=== PATIENT | female | born 1960 | race Caucasian/White ===

== ENCOUNTER 2018-04-24 11:13 | Observation (INO) ==
--- NOTE | 2018-04-24 15:14 | MB ---
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 She does not take an aspirin or any blood thinners. She was last seen at midnight when she went to bed, doing fine. When she woke up this morning she felt like she could not see well out of the right eye and some left-sided weakness at 8 a.m. SOCIAL HISTORY: She is not a smoker or drinker, lives alone. FAMILY HISTORY: She is adopted. REVIEW OF SYSTEMS: According to the daughter, no hypertension, diabetes, hypercholesterolemia, DE, stent, angioplasty, atrial fibrillation, Coumadin, renal, hepatic or pulmonary disease, lupus, ulcer, cancer, definite seizure, prior stroke. ALLERGIES: SHE IS ALLERGIC TO SULFA, AZITHROMYCIN, CIPRO, AND PENICILLIN. MEDICATIONS: In July, she was on thyroid medicine, Claritin, Symbicort, inhalers, Mobic, Protonix and vitamins. PHYSICAL EXAMINATION: On exam this morning, her daughter noted blood pressure 175/108. RECOMMENDATIONS: The labs, CAT scan preliminary negative of the brain, CTAs are pending. ADDENDUM On exam, sinus rhythm, 150/70, now 80. Visual gutierrez appeared full bilaterally, on the TeleStroke exam via the ER doctor. Extraocular movements intact. Face is symmetric with some slight decreased sensation on the left compared to the right. Tongue was midline. Speech is fluent. She is not aphasic, gives a good history. There is a slight left drift. She had normal strength in right upper and lower extremity. The left upper triceps to about 4+/5 as per finger extensors. Left iliopsoas is about 4/5. Pinprick seemed to be diminished left face, arm, and leg. NIH stroke scale 4. IMPRESSION: Possibly a small stroke. She tells me that she passed out this morning. She had woken up, felt dizzy, some vertigo, went to stand up passed out on the floor, woke up, had urinary incontinence and her tongue feels a little sore, whether she could have had a seizure or just from hypoglycemia is a possibility. She tells me she has had several of these episodes in the last 5 years, where her sugar was down to 23. In fact, she wears a sugar monitor for just such symptoms. If CT of the head and [place] are negative, we will transfer over to [place]. I gave her 325 aspirin. Do an MRI of the brain, and I will be following her with you in the hospital. An EEG will be performed and some other blood work. Following a look at her labs here, her CPK and troponin are negative. Sugar was 80 in the ER today. MD NAWAF Seay/caryn , 12:22 PM , 12:28 PM MTDKip
[2018-04-24] MEDS ORDERED: Acetaminophen 325 MG Tablet PO PRN ×2 (16:01→17:56)
--- NOTE | 2018-04-24 16:19 | P.HPIM ---
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 Patient reports that she wake up this AM did not feel like herself, tried to stand up and passed out. Patient denies head trauma. Patient was unconscious for an unknown amount of time. Then when patient came to around 9:30 AM she could not see out of her right eye. Her cloths were wet, she is not sure if the clothes were wet from sweat or urine. At first patient though that her blood sugar was low so she ate several glucose tablets. Patient reports that her glucose has been as low as in the 30s 3-4 times this week, mostly in the AM. Patient attributes these low blood sugar readings to her increased activates. Patient also reports upper and lower extremity weakness along with numbness to the left side of her face and tongue. Patient also reports that when she looked in the mirror her face did not seem symmetrical. Patient had a headache and reports her blood pressure was elevated, "178/something." She does not take an aspirin or any blood thinners. She was last seen at midnight when she went to bed, doing fine. At this time patient reports that the vision in her right eye and left sided weakness is improving. 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 Medications and Allergies Allergies Allergy/AdvReac Type Severity Reaction Status Date / Time azithromycin Allergy Severe Hives Verified 04/24/18 11:37 ciprofloxacin Allergy Severe Hives Verified 04/24/18 11:37 penicillin G Allergy Severe Anaphylaxis Verified 04/24/18 11:37 Sulfa (Sulfonamide Allergy Severe Hives Verified 04/24/18 11:37 Antibiotics) corn Allergy Wheezing Verified 04/24/18 11:37 peanut [peanuts] Allergy Anaphylaxis Verified 04/24/18 11:37 Home Medications Medication Instructions Recorded Confirmed Type albuterol sulfate 1.25 mg INHALATION Q4H PRN 04/24/18 04/24/18 History budesonide-formoterol [Symbicort] 2 puff INHALATION BID 04/24/18 04/24/18 History folic acid 04/24/18 History gabapentin 300 mg PO HS 04/24/18 04/24/18 History hydrochlorothiazide 25 mg PO DAILY 04/24/18 04/24/18 History levothyroxine [Synthroid] 100 mcg PO DAILY 04/24/18 04/24/18 History loratadine [Claritin] 10 mg PO DAILY 04/24/18 04/24/18 History lorazepam 0.5 mg PO TID PRN 04/24/18 04/24/18 History meloxicam 15 mg PO DAILY 04/24/18 04/24/18 History metformin 500 mg PO BID 04/24/18 04/24/18 History multivit with min-folic acid 04/24/18 History [Adult One Daily Multivitamin] ondansetron HCl [Zofran] 8 mg PO TID PRN 04/24/18 04/24/18 History pantoprazole [Protonix] 40 mg PO DAILY 04/24/18 04/24/18 History tizanidine [Zanaflex] 4 mg PO BID PRN 04/24/18 04/24/18 History tramadol 50 mg PO BID PRN 04/24/18 04/24/18 History Active Medications: Active Medications Acetaminophen (Tylenol) 650 mg PO Q4H PRN PRN Reason: Temp > 100.4 Al Hydroxide/Mg Hydroxide (Milk Of Ashley Liq) 30 ml PO Q12H PRN PRN Reason: Mild Constipation Sodium Chloride (Ns Inj) 1,000 mls @ 70 mls/hr IV.CONT .[id number] [facility] Ondansetron HCl (Zofran Inj) 4 mg IV.PUSH Q6H PRN PRN Reason: NAUSEA OR VOMITING Senna/Docusate Sodium (Ivette-Colace) [address] [facility] Physical Exam Narrative: GENERAL: This is a well-nourished, well-developed patient, in no apparent distress. CARDIOVASCULAR: Regular rate and rhythm RESPIRATORY: Clear to auscultation. Breath sounds equal bilaterally. No wheezes , rales, or rhonchi. GASTROINTESTINAL: Abdomen soft, non-tender, nondistended. Normal active bowel sounds MUSCULOSKELETAL: Extremities without clubbing, cyanosis, or edema. NEURO: Alert & Oriented x4 to person, place, time, situation. Moves all ext x4. bilateral muscle strength appears equal Results Labs CBC & Chem 7: 04/25/18 05:53 04/25/18 05:53 Caprini VTE Risk Assessment Caprini VTE Risk Assessment: No/Low Risk (score <= 1) Caprini Risk Assessment Model: Point Value = 1 Point Value = 2 Point Value = 3 Point Value = 5 Age 41-60 Minor surgery BMI > 25 kg/m2 Swollen legs Varicose veins or History of unexplained or recurrent spontaneous Oral contraceptives or hormone replacement Sepsis (< 1 month) Serious lung disease, including pneumonia (< 1 month) Abnormal pulmonary function Acute myocardial infarction Congestive heart failure (< 1 month) History of inflammatory bowel disease Medical patient at bed rest Age 61-74 Arthroscopic surgery Major open surgery (> 45 min) Laparoscopic surgery (> 45 min) Malignancy Confined to bed (> 72 hours) Immobilizing plaster cast Central venous access Age >= 75 History of VTE Family history of VTE Factor V Leiden Prothrombin [id number] Lupus anticoagulant Anticardiolipin antibodies Elevated serum homocysteine Heparin-induced thrombocytopenia Other congenital or acquired thrombophilia Stroke (< 1 month) Elective arthroplasty Hip, pelvis, or leg fracture Acute spinal cord injury (< 1 month) Prophylaxis Regimen: Total Risk Factor Score Risk Level Prophylaxis Regimen 0-1 Low Early ambulation 2 Moderate Order ONE of the following: *Sequential Compression Device (SCD) *Heparin 5000 units SQ BID 3-4 Higher Order ONE of the following medications: *Heparin 5000 units SQ TID *Enoxaparin/Lovenox 40 mg SQ daily (WT < 150 kg, CrCl > 30 mL/min) *Enoxaparin/Lovenox 30 mg SQ daily (WT < 150 kg, CrCl > 10-29 mL/min) *Enoxaparin/Lovenox 30 mg SQ BID (WT < 150 kg, CrCl > 30 mL/min) AND/OR *Sequential Compression Device (SCD) 5 or more Highest Order ONE of the following medications: *Heparin 5000 units SQ TID (Preferred with Epidurals) *Enoxaparin/Lovenox 40 mg SQ daily (WT < 150 kg, CrCl > 30 mL/min) *Enoxaparin/Lovenox 30 mg SQ daily (WT < 150 kg, CrCl > 10-29 mL/min) *Enoxaparin/Lovenox 30 mg SQ BID (WT < 150 kg, CrCl > 30 mL/min) AND *Sequential Compression Device (SCD) Assessment and Plan Plan A 57-year-old right-handed woman with gastric bypass, hypothyroidism, 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 Patient reports that she wake up this AM did not feel like herself, tried to stand up and passed out. Patient denies head trauma. Patient was unconscious for an unknown amount of time. Then when patient came to around 9:30 AM she could not see out of her right eye. Her cloths were wet, she is not sure if the clothes were wet from sweat or urine. At first patient though that her blood sugar was low so she ate several glucose tablets. Patient reports that her glucose has been as low as in the 30s 3-4 times this week, mostly in the AM. Patient attributes these low blood sugar readings to her increased activates. Patient also reports upper and lower extremity weakness along with numbness to the left side of her face and tongue. Patient also reports that when she looked in the mirror her face did not seem symmetrical. Patient had a headache and reports her blood pressure was elevated, "178/something." She does not take an aspirin or any blood thinners. She was last seen at midnight when she went to bed, doing fine. 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 No hemodynamically significant lesion involving the carotid or vertebral arteries.2. Sharply angulated proximal left internal carotid artery cervical segment. CTA of the head: 1. No large vessel occlusion CT head: 1. No intracranial abnormality is seen.2. Right maxillary sinus disease. CXR: 1. No acute cardiopulmonary disease Consult [facility]/MRA EEG Echocardiogram accuchecks ACHS and 0300 hypothyroidism Continue home Synthroid asthma COPD albuterol inhaler at bedside Duonebs as needed Continue home Symbicort GERD Continue home Protonix Anxiety continue home lorazepam DVT prophylaxis with SCDs Attending Attestation Patient examined. Assessment and plan formulated with Ericka Norris PA-C. I agree with the above.
[2018-04-24] MEDS ORDERED: Dextrose 50% in Water 50 ML Vial IV.PUSH PRN (16:20)
[2018-04-24] MEDS ORDERED: LORazepam 0.5 MG Tablet PO PRN (17:14)
[2018-04-24] MEDS: Sod Chloride 0.9% Inj 1,000 ML IV.CONT SCH (17:40)
--- NOTE | 2018-04-24 20:13 | MR ---
EXAM DATE: 04/24/2018 7:38 PM EST AGE/SEX: 57 years / Female INDICATIONS: Left sided weakness. Right eye vision loss. CLINICAL DATA: This is the patient's initial encounter. Patient reports that signs and symptoms have been present for 1 day and indicates a pain score of 0/10. MEDICAL/SURGICAL HISTORY: Hypothyroidism. Asthma. Irritable bowel syndrome. Cholecystectomy. Gastric bypass. Tonsillectomy. COMPARISON: [facility] [place] W/O CONTRAST, 04/24/2018. . TECHNIQUE: 3D [id number] MRA was performed. Source images, multiplanar STS MIP, and 3D volum e MIP reconstructions were reviewed. FINDINGS: There is excellent visualization of the major intracranial arteries out to the second-order branch ve ssels. There is no evidence for aneurysm, vessel truncation or stenosis, and no evidence for vascula r malformation. CONCLUSION: Intracranial arteries are within normal limits. Electronically signed by: Andrew Brown MD 04/24/2018 8:11 PM EST
--- NOTE | 2018-04-24 20:14 | MR ---
EXAM DATE: 04/24/2018 7:40 PM EST AGE/SEX: 57 years / Female INDICATIONS: Left sided weakness. Right eye vision loss. CLINICAL DATA: This is the patient's initial encounter. Patient reports that signs and symptoms have been present for 1 day and indicates a pain score of 0/10. MEDICAL/SURGICAL HISTORY: Asthma. Hypertension. Irritable bowel syndrome. Cholecystectomy. G astric bypass. Tonsillectomy. COMPARISON: [facility], CT HEAD W/O CONTRAST, 04/24/2018. [facility], CTA HEAD W CONTRAST W 3D, 04/24/2018 . C, MRA HEAD W/O CONTRAST, 04/24/2018. . TECHNIQUE: Multiplanar, multisequence examination of the brain was performed without contrast. FINDINGS: Cerebrum: The ventricles are normal for age. No evidence of midline shift, mass lesion, hemorrhage or acute infarction. No extraaxial fluid collections are seen. The pituitary gland and suprasellar cistern are normal in configuration. White Matter: No significant signal abnormalities are seen in the white matter. Posterior Fossa: The cerebellum and brainstem are intact. The 4th ventricle is midline. The cerebel lopontine angle is unremarkable. The cerebellar tonsils are normal in position. Diffusion Imaging: No focal areas of restricted diffusion are seen. No evidence of acute infarction . Extracranial: The visualized portions of the orbits and paranasal sinuses are unremarkable. CONCLUSION: Normal MRI of the brain without contrast. Electronically signed by: Andrew Brown MD 04/24/2018 8:13 PM EST
[2018-04-24] MEDS: Senna/Docusate Sodium 8.6/50 MG Tablet PO SCH (20:16)
[2018-04-24] MEDS ORDERED: Budesonide-Formoterol 160/4.5 MCG 6 GM Inhaler INH SCH (21:00)
[2018-04-25] MEDS: Sod Chloride 0.9% Inj 1,000 ML IV.CONT SCH (05:41)
[2018-04-25] MEDS ORDERED: Levothyroxine 100 MCG Tablet PO SCH (06:00)
[2018-04-25 06:52] LABS: Baso # (Auto) 0.1 th/mm3 (0.0-0.2); Baso % (Auto) 1.5 % (0.0-2.0); Eos # (Auto) 0.2 th/mm3 (0.0-0.4); Eos % (Auto) 2.7 % (0.0-4.0); Hematocrit 38.8 % (35.0-46.0); Hemoglobin 12.9 gm/dL (11.6-15.3); Lymph # (Auto) 2.3 th/mm3 (1.0-4.8); Mean Corpuscular HGB Conc 33.3 % (32.0-36.0); Mean Corpuscular Hemoglobin 30.8 pg (27.0-34.0); Mean Corpuscular Volume 92.5 fL (80.0-100.0); Mean Platelet Volume 8.6 fL (7.0-11.0); Mono # (Auto) 0.7 th/mm3 (0.0-0.9); Mono % (Auto) 9.8 % (0.0-8.0); Neut # (Auto) 3.7 th/mm3 (1.8-7.7); Platelet Count 307 th/mm3 (150-450); Red Cell Distribution Width 14.5 % (11.6-17.2); White Blood Count 6.9 th/mm3 (4.0-11.0)
[2018-04-25 07:17] LABS: Calcium 8.3 mg/dL (8.5-10.1); Carbon Dioxide 27.8 meq/L (21.0-32.0); Potassium 3.9 meq/L (3.5-5.1)
--- NOTE | 2018-04-25 08:13 | P.PNNEU ---
Subjective Subjective Comments: sr Active Medications: Active Medications Acetaminophen (Tylenol) 650 mg PO Q4H PRN PRN Reason: TEMP>101F, PAIN 1-10, HEADACHE Last Admin: 04/24/18 18:36 Dose: 650 mg Al Hydroxide/Mg Hydroxide (Milk Of Magnrebekah Liq) 30 ml PO Q12H PRN PRN Reason: Mild Constipation Albuterol (Duoneb Neb (Prn)) 1 ampul NEB Q2HR NEB PRN PRN Reason: SHORTNESS OF BREATH/WHEEZING Albuterol (Ventolin Hfa Inh) 2 puff INH Q4H PRN PRN Reason: SHORTNESS OF BREATH/WHEEZING Aspirin (Aspirin) 325 mg PO DAILY [facility] Budesonide/Formoterol Fumarate (Symbicort 160/4.5 Mcg Inh) 2 puff INH BID [facility] Last Admin: 04/24/18 20:27 Dose: 2 puff Dextrose (D50w Vial) 50 ml IV.PUSH UNSCH PRN PRN Reason: PER HYPOGLYCEMIA PROTOCOL Diphenhydramine HCl (Benadryl) 25 mg PO Q6H PRN PRN Reason: ITCHING Last Admin: 04/24/18 18:36 Dose: 25 mg Glucagon (Glucagon Inj) 1 mg OTHER PRN PRN PRN Reason: for Hypoglycemia Protocol Hydrochlorothiazide (Hydrodiuril) 25 mg PO DAILY [facility] Sodium Chloride (Ns Inj) 1,000 mls @ 70 mls/hr IV.CONT .[id number] [facility] Last Admin: 04/25/18 05:41 Dose: 70 mls/hr Levothyroxine Sodium (Synthroid) 100 mcg PO DAILY@0600 [facility] Last Admin: 04/25/18 05:41 Dose: 100 mcg Loratadine (Claritin) 10 mg PO DAILY [facility] Lorazepam (Ativan) 0.5 mg PO TID PRN PRN Reason: anxiety Last Admin: 04/24/18 22:25 Dose: 0.5 mg Ondansetron HCl (Zofran Inj) 4 mg IV.PUSH Q6H PRN PRN Reason: NAUSEA OR VOMITING Last Admin: 04/24/18 21:27 Dose: 4 mg Pantoprazole Sodium (Protonix) 40 mg PO DAILY [facility] Senna/Docusate Sodium (Ivette-Colace) 1 tab PO BID [facility] Last Admin: 04/24/18 20:16 Dose: 1 tab Tramadol HCl (Ultram) 50 mg PO Q6H PRN PRN Reason: PAIN SCALE 1-10 Last Admin: 04/25/18 05:43 Dose: 50 mg Allergies/Adverse Reactions: Allergies Allergy/AdvReac Type Severity Reaction Status Date / Time azithromycin Allergy Severe Hives Verified 04/24/18 11:37 ciprofloxacin Allergy Severe Hives Verified 04/24/18 11:37 penicillin G Allergy Severe Anaphylaxis Verified 04/24/18 11:37 Sulfa (Sulfonamide Allergy Severe Hives Verified 04/24/18 11:37 Antibiotics) corn Allergy Wheezing Verified 04/24/18 11:37 peanut [peanuts] Allergy Anaphylaxis Verified 04/24/18 11:37 Physical Exam Vital signs: Vital Signs 04/24/18 16:00 04/24/18 20:00 04/24/18 23:30 Temperature 98.3 F 98.2 F Pulse Rate 62 56 L 67 Respiratory Rate 18 17 Blood Pressure 137/83 147/70 H Pulse Oximetry 98 95 04/25/18 00:00 04/25/18 04:00 Temperature 97.7 F 97.8 F Pulse Rate 67 64 Respiratory Rate 17 17 Blood Pressure 131/78 101/58 L Pulse Oximetry 96 94 L Intake & Output 04/24/18 04/25/18 04/25/18 18:59 06:59 18:59 Intake Total 1000 / 1000 Output Total 250 / 250 1000 / 1000 Balance -250 / -250 0 / 0 Weight 116.3 kg 117.6 kg Intake: IV 1000 / 1000 NS Inj 1,000 ML @ 70 mls/hr IV. 1000 / 1000 CONT .[id number] [facility] Rx#:[id number] Output: Urine 250 / 250 Urine Amount (Catheter) 1000 / 1000 Indwelling Urethral Catheter 1000 / 1000 Other: # Voids 3 Date of Last Bowel Movement 04/23/18 04/23/18 Weight On Admission 116.3 kg Narrative: vff face sym 5/5 t/o nl gait speech nl hallpike neg vff od - Urinary Catheter Management Indwelling Urethral Catheter Cath placed during this visit: yes, but has since been removed by the nurse Reason for continuing: Decision to DC catheter Insertion date: 04/24/18 Removal date: 04/24/18 Removal time: 22:35 Objective Laboratory Results - last 24 hr 04/24/18 04/24/18 04/25/18 19:56 21:32 02:46 WBC RBC Hgb Hct MCV MCH MCHC RDW Plt Count MPV Neut % (Auto) Lymph % (Auto) [place] % (Auto) Eos % (Auto) Baso % (Auto) Neut # (Auto) Lymph # (Auto) [place] # (Auto) Eos # (Auto) Baso # (Auto) WBC Differential Differential Comment Sodium Potassium Chloride Carbon Dioxide Anion Gap BUN Creatinine Estimated GFR POC Glucose 87 290 H 83 Random Glucose Calcium 04/25/18 04/25/18 05:53 05:53 WBC 6.9 RBC 4.20 Hgb 12.9 Hct 38.8 MCV 92.5 MCH 30.8 MCHC 33.3 RDW 14.5 Plt Count 307 MPV 8.6 Neut % (Auto) 53.0 Lymph % (Auto) 33.0 [place] % (Auto) 9.8 H Eos % (Auto) 2.7 Baso % (Auto) 1.5 Neut # (Auto) 3.7 Lymph # (Auto) 2.3 [place] # (Auto) 0.7 Eos # (Auto) 0.2 Baso # (Auto) 0.1 WBC Differential . Differential Comment Auto diff final Sodium 145 Potassium 3.9 Chloride 110 H Carbon Dioxide 27.8 Anion Gap 7 BUN 22 H Creatinine 0.83 Estimated GFR 71 L POC Glucose Random Glucose 79 Calcium 8.3 L Review/Management - Review/Management Plan: imp low sugar spell mri neg ctax2 neg trop neg check ldl tsh sed if these and echo neg and eeg done can dc on [id number] and needs o/p cardionet cards [facility]
[2018-04-25 08:40] LABS: Chol/HDL Ratio 2.48 Ratio; HDL Cholesterol 65.2 mg/dL (40.0-60.0)
--- NOTE | 2018-04-25 08:47 | P.PNIM ---
Subjective Interval history: Patient up ambulating about the room reports feeling back to her normal today vision changes resolved, weakness resolved Physical Exam Vital signs: Last Vital Signs Temp 97.8 F 04/25/18 04:00 Pulse 64 04/25/18 04:00 Resp 17 04/25/18 04:00 BP 101/58 L 04/25/18 04:00 Pulse Ox 94 L 04/25/18 04:00 Narrative: GENERAL: This is a well-nourished, well-developed patient, in no apparent distress. CARDIOVASCULAR: Regular rate and rhythm RESPIRATORY: Clear to auscultation. Breath sounds equal bilaterally. No wheezes , rales, or rhonchi. GASTROINTESTINAL: Abdomen soft, non-tender, nondistended. Normal active bowel sounds MUSCULOSKELETAL: Extremities without clubbing, cyanosis, or edema. NEURO: Alert & Oriented x4 to person, place, time, situation. Moves all ext x4. 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 Patient reports that she wake up this AM did not feel like herself, tried to stand up and passed out. Patient denies head trauma. Patient was unconscious for an unknown amount of time. Then when patient came to around 9:30 AM she could not see out of her right eye. Her cloths were wet, she is not sure if the clothes were wet from sweat or urine. At first patient though that her blood sugar was low so she ate several glucose tablets. Patient reports that her glucose has been as low as in the 30s 3-4 times this week, mostly in the AM. Patient attributes these low blood sugar readings to her increased activates. Patient also reports upper and lower extremity weakness along with numbness to the left side of her face and tongue. Patient also reports that when she looked in the mirror her face did not seem symmetrical. Patient had a headache and reports her blood pressure was elevated, "178/something." She does not take an aspirin or any blood thinners. She was last seen at midnight when she went to bed, doing fine. 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 No hemodynamically significant lesion involving the carotid or vertebral arteries.2. Sharply angulated proximal left internal carotid artery cervical segment. CTA of the head: 1. No large vessel occlusion CT head: 1. No intracranial abnormality is seen.2. Right maxillary sinus disease. CXR: 1. No acute cardiopulmonary disease Consult to neurology IVFs Head MRI 04/24/18 Normal MRI of the brain without contrast. Head MRA 04/24/18Intracranial arteries are within normal limits. EEG pending Echocardiogram pending accuchecks ACHS and 0300 continue aspirin daily hypothyroidism Continue home Synthroid asthma COPD albuterol inhaler at bedside Duonebs as needed Continue home Symbicort GERD Continue home Protonix Anxiety continue home lorazepam DVT prophylaxis with SCDs Discussed case with Dr. Sesay he does not feel that patient had a CVA. Cleared patient for DC after EEG and Echocardiogram complete. Recommends aspirin 81 mg daily and outpatient 21 day event monitor. DC home in stable condition on regular diet. Continue home medications add aspirin 81 mg daily. Patient to follow up with PCP in 1 week, Neurology in 1-2 weeks and endocrinology tomorrow. Please follow up with [facility] cardiology for 21 day event monitor, with results to PCP and neurology. Progress Note: Quality VTE Deep Vein Thrombosis/Pulmonary Embolism Present on Admission: No
[2018-04-25] MEDS ORDERED: hydroCHLOROthiazide 25 MG Tablet PO SCH (09:00)
[2018-04-25] MEDS ORDERED: Loratadine 10 MG Tablet PO SCH (09:00)
[2018-04-25] MEDS ORDERED: Aspirin 325 MG Tablet PO SCH (09:00)
[2018-04-25] MEDS: Senna/Docusate Sodium 8.6/50 MG Tablet PO SCH (09:38)
--- NOTE | 2018-04-25 15:41 | ECHRPT ---
Indication: CVA/TIA CONCLUSIONS The left ventricular systolic function is normal with an estimated ejection fraction in the range of 55-60%. Left ventricular diastolic function parameters are normal. Trace mitral valve regurgitation. There is trace tricuspid valve regurgitation. BP: / HR: Rhythm: MEASUREMENTS (Male / Female) Normal Values Technical Quality:Fair 2D ECHO LV Diastolic Diameter PLAX 4.8 cm 4.2 - 5.9 / 3.9 - 5.3 cm LV Systolic Diameter PLAX 3.5 cm IVS Diastolic Thickness 1.0 cm 0.6 - 1.0 / 0.6 - 0.9 cm LVPW Diastolic Thickness 1.0 cm 0.6 - 1.0 / 0.6 - 0.9 cm LV Relative Wall Thickness 0.4 RV Internal Dim ED PLAX 3.5 cm LVOT Diameter 2.2 cm Aortic Root Diameter 2.9 cm LA Systolic Diameter LX 4.2 cm 3.0 - 4.0 / 2.7 - 3.8 cm M-MODE AV Cusp Separation MM 1.9 cm DOPPLER AV Peak Velocity 121.0 cm/s AV Peak Gradient 5.9 mmHg LVOT Peak Velocity 76.5 cm/s LVOT Peak Gradient 2.3 mmHg AV Area Cont Eq pk 2.4 cm Mitral E Point Velocity 59.2 cm/s Mitral A Point Velocity 62.2 cm/s Mitral E to A Ratio 1.0 LV E' Lateral Velocity 10.7 cm/s Mitral E to LV E' Lateral Ratio 5.5 LV E' Septal Velocity 8.1 cm/s Mitral E to LV E' Septal Ratio 7.3 TR Peak Velocity 312.0 cm/s TR Peak Gradient 38.9 mmHg Right Atrial Pressure 10.0 mmHg Pulmonary Artery Systolic Pressu 48.9 mmHg Right Ventricular Systolic Press 48.9 mmHg PV Peak Velocity 96.4 cm/s PV Peak Gradient 3.7 mmHg FINDINGS LEFT VENTRICLE Normal left ventricular size. Wall thickness is normal. The left ventricular systolic function is normal with an estimated ejection fraction in the range of 55-60%. No regional wall motion abnormalities are present. Left ventricular diastolic function parameters are normal. RIGHT VENTRICLE Normal right ventricular size and systolic function. LEFT ATRIUM The left atrial size is mildly dilated. RIGHT ATRIUM The right atrial size is normal. ATRIAL SEPTUM Normal atrial septal thickness without atrial level shunting by limited color doppler interrogation. AORTA The aortic root and proximal ascending aorta are normal in size on limited imaging. MITRAL VALVE Structurally normal mitral valve. No mitral valve stenosis. Trace mitral valve regurgitation. AORTIC VALVE Trileaflet aortic valve. No aortic valve stenosis or regurgitation. TRICUSPID VALVE Structurally normal tricuspid valve. There is trace tricuspid valve regurgitation. The estimated pulmonary arterial pressure is 49 mmHg. PULMONARY VALVE No pulmonary valve regurgitation or stenosis. VESSELS The inferior vena cava is normal in size. PERICARDIUM No pericardial effusion. Abel Garcai DO (Electronically Signed) Final Date:25 April 2018 15:40
--- NOTE | 2018-04-25 21:14 | MG ---
cc: Paula aZvala MD, Kimberly PA ELECTROENCEPHALOGRAM NUMBER: [id number] REFERRING PHYSICIAN: MARYCARMEN Esparza ROOM: 1624 Awake, drowsy, asleep with photic stimulation. Hyperventilation not done due to nausea. MRI negative. Blood glucose was 55 before the start of this EEG. The patient was then drinking trung becky before the study. Admitted with not feeling well, passed out, some loss of vision out of one eye, weakness in upper and lower extremities, headache. On Zofran, aspirin, Benadryl, Symbicort, Claritin, Ultram. DESCRIPTION OF RECORD: There is a lot of eye movement artifact, but overall 8-9 Hz, 20-60 microvolt background. EKG looks sinus. Constant eye artifact. Photic stimulation does show a good posterior driving response. No epileptic activity. IMPRESSION: Overall, normal-appearing electroencephalogram without any epileptiform features. Clinical correlation. Consider taking the patient off of any Ultram as that may lower seizure threshold. MD ADINA Kaba/timoteo , 08:07 PM , 08:12 PM
== END 2018-04-25 13:48 | disposition home or self-care (01) ==
LOC: N06 11:13 → NEDDLT 11:13 → N06 15:56
PROVIDERS: ADMIT Hospitalist; ATTEND Hospitalist